=== PATIENT | female | born 1965 | race Two or more races ===

== ENCOUNTER 2025-04-16 08:15 | Emergency (ER) | payer MEDICAID, SELFPAY ==
--- NOTE | 2025-04-16 09:10 | EKG_ITS ---
[facility] Test Date: 2025-04-16 Pat Name: BETHEL FELIPE Department: Room: - Gender: Female Try Out Person: : 1965 Requested By: Giovanni Bunn (MAT) Order Number: [id number] Reading MD: Giovanni Bunn (INTERVENTION ANALYST) Measurements Intervals [place] Rate: 66 P: 14 LA: 170 QRS: 29 QRSD: 86 T: 48 QT: 401 QTc: 421 Interpretive Statements SINUS RHYTHM No previous ECG available for comparison /[id number]/[email or web address]/[id number].pdf
--- NOTE | 2025-04-16 09:10 | XR_ITS ---
Examination: Abdomen sonogram, Limited Date and time of exam: 04/16/2025, 9:25 a.m. INDICATION: Right upper quadrant pain radiating to back for 1 week. History of gallstones. COMPARISON: Gallbladder ultrasound 04/28/2005. Technique: Real-time haro scale transabdominal sonographic images of the upper abdomen obtained. FINDINGS: Gallbladder: Multiple small echogenic shadowing gallbladder calculi are present. No gallbladder wall thickening or pericholecystic fluid. No reported pain with direct transducer pressure over the gallbladder. The common bile duct measures 0.39 cm. No intrahepatic bile duct dilatation. The liver demonstrates nonspecific coarse echotexture. Hepatic margins are smooth. Small hepatic cysts are identified in the right hepatic lobe, the largest measuring 1.8 cm, the other measuring 1.3 cm. No apparent solid mass. Color Doppler demonstrates patency of the main portal vein with normal hepatopetal flow. The visualized IVC is patent. Limited views of the pancreas show no significant abnormality. There is no evidence for right renal calculi, hydronephrosis or mass. There appears to be hypertrophic column of [place] or potentially partially duplicated right renal collecting system. IMPRESSION: Cholelithiasis without evidence for acute cholecystitis, choledocholithiasis or biliary ductal obstruction. Diffusely increased hepatic echotexture is nonspecific and could be due to hepatic steatosis (most likely) amongst other possibilities. Simple-appearing sub-2 cm right hepatic lobe cysts.
--- NOTE | 2025-04-16 09:10 | PD.EDRME ---
Rapid Medical Screening Exam RME Arrival date/time: 04/16/25 08:15 60-year-old female presents to the emergency department today for complaints of upper abdominal pain and back pain Chief Complaint: Abdominal Pain Exam: On exam patient is tenderness of upper abdomen On exam patient well-appearing nontoxic Clinical Impression: Lab and imaging ordered
[2025-04-16 09:11] VITALS: BP 120/67; PULSE 70; RESP 16; TEMP 36.6; O2SAT 100; BMI 27.3
[2025-04-16 09:59] LABS: Collection Type, Urine Clean Catch
[2025-04-16 10:07] LABS: Bacteria,Urine Rare; Bilirubin,Urine Negative (Negative); Blood,Urine Negative (Negative); Clarity,Urine Clear (Clear/Hazy); Color,Urine Colorless (Lt Yel-Yel); Culture Indicated,Urine Not Indicated; Glucose, Urine Negative (Negative); Ketones,Urine Negative (Negative); Leukocyte Esterase,Urine Positive (Negative); Nitrite,Urine Negative (Negative); PH,Urine 7.0 (5.0-7.0); Protein,Urine Negative (Neg - Trace); RBC,Urine 3 /hpf (0-3); Specific Gravity,Urine 1.014 (1.001-1.035); Squamous Epithelial Cell,Urine 2 /hpf (0-5); Urobilinogen,Urine Negative mg/dL (0.0-1.0); WBC,Urine 7 /hpf (0-5)
[2025-04-16 10:27] LABS: Basophils # (Auto) 0.0 Thou/mm3 (0.0-0.2); Basophils % (Auto) 1 % (0-2.5); Eosinophils # (Auto) 0.1 Thou/mm3 (0.0-0.5); Eosinophils % (Auto) 1 % (0-10); Hematocrit 38.1 % (36.0-46.0); Hemoglobin 12.4 g/dL (12.0-16.0); Immature Granulocytes Auto 0.01 Thou/mm3 (0.00-0.00); Lymphocytes # (Auto) 2.4 Thou/mm3 (1.0-4.8); Lymphocytes % (Auto) 42 % (10-50); Mean Corpuscular HGB Conc 32.5 g/dl (31.0-37.0); Mean Corpuscular Hemoglobin 30.5 pg (25.0-35.0); Mean Corpuscular Volume 94 fL (80-100); Monocytes # (Auto) 0.5 Thou/mm3 (0.0-0.8); Monocytes % (Auto) 8 % (0-12); Neutrophils # (Auto) 2.7 Thou/mm3 (1.8-7.7); Neutrophils % (Auto) 48 % (37-80); Nucleated Red Blood Cell # 0.00 Thou/mm3 (0.00-0.00); Nucleated Red Blood Cell % 0 /100 WBC (0); Platelet Count 403 Thou/mm3 (140-440); RDW Standard Deviation 43.9 fL (36.4-46.3); Red Blood Count 4.07 Miln/mm3 (4.00-5.20); White Blood Count 5.7 Thou/mm3 (3.6-11.0)
[2025-04-16 10:50] LABS: Alanine Aminotransferase 8 U/L (10-49); Albumin, Serum 4.6 gm/dL (3.4-4.8); Albumin/Globulin Ratio 1.5 (1.2-2.2); Alkaline Phosphatase 84 U/L (46-116); Anion Gap 8 (7-16); Aspartate Amino Transferase 19 U/L (0-34); BUN/Creatinine Ratio 10 Ratio (12-20); Bilirubin,Total 0.3 mg/dL (0.3-1.2); Blood Urea Nitrogen 7 mg/dL (9-23); Calcium 9.2 mg/dL (8.3-10.6); Calcium (Corrected) 9.2 mg/dL (8.5-10.1); Carbon Dioxide 27.4 mMol/L (20.0-31.0); Chloride 107 mMol/L (98-107); Creatinine (Component) 0.7 mg/dL (0.6-1.3); Estimated Creatinine Clearance 80.1 mL/min (>60); Globulin 3.0 gm/dL (2.3-3.5); Glucose 87 mg/dL (74-106); Lipase 26 U/L (12-53); Osmolality,Calculated 280 (275-295); Potassium 4.3 mMol/L (3.4-5.1); Sodium 142 mMol/L (136-145); Total Protein 7.6 gm/dL (5.7-8.2); Troponin I < 0.002 ng/mL (0.0-0.045); eGFR > 60 See Note
[2025-04-16 11:46] VITALS: BP 139/78; PULSE 68; RESP 16; TEMP 36.7; O2SAT 98
--- NOTE | 2025-04-16 11:57 | EDNOTE_ITS ---
<Statement entered by Cristela Mari MD - 04/17/25 09:37> As co-signing physician, I was present and available for consult prn. I concur with the plan and care as documented by the midlevel provider. ED General RME/HPI General Chief complaint: Abdominal Pain Stated complaint: ABD PAIN X 1 WK RADIATING TO BACK Time Seen by Provider: 04/16/25 11:46 Arrival date/time: 04/16/25 08:15 CC: Epigastric pain HPI ongoing for months but worse in the last several days worse after meals or laying down at nighttime. Patient denies chest pain fever chills shortness of breath difficulty breathing headache nausea vomiting or diarrhea. The patient is originally put on omeprazole for the same complaints, but stopped taking it because it did not work . Patient intentionally did not show up to a GI appointment sometime in the past and the daughter is angry at her for the same complaint. Patient is currently nontoxic-appearing RME / HPI RME / HPI narrative: 04/16/25 08:15 60-year-old female presents to the emergency department today for complaints of upper abdominal pain and back pain Exam: On exam patient is tenderness of upper abdomen On exam patient well-appearing nontoxic Impression: Lab and imaging ordered Related Data Previous Rx's ?Medication ?Instructions ?Recorded pantoprazole 20 mg tablet,delayed 20 mg PO QDAY #30 ta bs 04/16/25 release (Protonix) Allergies Allergy/AdvReac Type Severity Reaction Status Date / Time No Known Allergies Allergy Verified 04/16/25 08:18 Review of Systems Review of Systems Narrative Review of Systems: GEN: No fever, no chills, no weight loss EYES: No discharge, no visual changes, no pain HEENT: No ear pain, no congestion, no sore throat PULM: No shortness of breath, no cough, no congestion CV: No chest pain, no dyspnea on exertion, no palpitations GI: No nausea, no vomiting, no diarrhea, + pain, no constipation : No frequency, no urgency, no dysuria MUSC/SKEL: No joint pain, no back pain SKIN: No rash PSYCH: No hallucinations, no depression HEME/LYMPH: No easy bleeding or bruising tendencies NEURO: No weakness, no headache Past Medical History Social History SMOKING STATUS: Never smoker ED Exam Narrative Physical exam: [General: Not in any acute distress Head normocephalic HEENT: Eyes pupils are PERRLA EOMs intact mouth pink moist membranes uvula is midline swallow symmetrical phonation is normal. Within acceptable limits Neck is supple nontender Chest equal chest rise nontender to palpation Respiratory: Clear to auscultation no wheezes crackles or rubs CV: Rate rhythm is regular no murmurs rubs or clicks Abdomen is soft and flat, there is pain with epigastric palpation no reflexive guarding no rebound tenderness no right or left upper quadrant pain and no lower abdominal pain. Back: No CVA tenderness no spinous process tenderness from cervical spine thoracic and lumbar spine Skin: Intact no petechiae rash induration ulceration or crepitus Extremities: Moving all extremity against resistance cap refill less than 2 seconds neurosensory intact Neuro: Awake alert oriented x3 Glascow coma 15 no focal deficits] Course Quality Measures none Orders Category Date Time Status EKG (ED ONLY) *Do not use* NOW Care 04/16/25 09:10 Completed EKG (ED Only) Stat Exams 04/16/25 09:10 Draft US gall bladder Stat Exams 04/16/25 09:10 Completed CBC Stat Lab 04/16/25 10:05 Completed Comprehensive Metabolic Panel Stat Lab 04/16/25 10:05 Completed Lipase Stat Lab 04/16/25 10:05 Completed Troponin I Stat Lab 04/16/25 10:05 Completed UA, C/S IF [Urinalysis, C/S if Indicated] Stat Lab 04/16/25 09:30 Completed Vital Signs Vital signs: Vital Signs Temperature 97.9 F 04/16/25 09:11 Pulse Rate 70 04/16/25 09:11 Respiratory Rate 16 04/16/25 09:11 Blood Pressure 120/67 04/16/25 09:11 Pulse Oximetry (%) 100 04/16/25 09:11 Oxygen Delivery Method Room Air 04/16/25 09:11 Discharge Plan Plan Patient Disposition: HOME (Self Care) Patient condition on transfer: Stable Prescriptions/Referrals Prescriptions/Med Rec: New pantoprazole [Protonix] 20 mg tablet,delayed release (DR/EC) 20 mg PO QDAY Qty: 30 0RF Referrals: Jerel Crisostomo MD [Physician, Gastroenterology] - In 1 week No Primary/Family,Physician [Primary Care Provider] - In 1 week Problem List Clinical Impression: Acid reflux Patient/Caregiver Discharge Instructions Other Activity Instructions:: Avoid greasy spicy and fatty foods, avoid eating 2 hours before going to bed take the medication as prescribed if there is worsening of symptoms in spite of these changes return to the emergency room for further evaluation otherwise follow-up with the GI specialist listed above. Education Materials: How Acid Reflux Affects Your Throat, ED GERD (Adult) Print Language: Qatari Stand Alone Forms: [facility]elle Award Info., Patient Portal Info Letter, Work/School Release PA/ORTHOTIC FITTER Supervising Physician PA/ORTHOTIC FITTER Supervising Physician: Abdoul Jaimes ENP MDM Clinical Information Provided by: patient and family Medical Records reviewed [facility] Meds/Rx considered, not ordered None Labs/Rad/Tests considered, not ordered None Chronic Illness/Social Conditions Explain: Acid reflux Labs Labs: interpreted by me Lab(s) Interpretation(s): CBC shows no acute leukocytosis anemia thrombocytopenia CMP shows no significant electrolyte imbalances renal impairment transaminitis or T. bili elevation Urine is negative for urinary tract infection Imaging Imaging interpretation: interpreted by me Imaging Interpretation(s): Gallbladder shows cholelithiasis without choledocholithiasis or cholecystitis. Medication Administration(s) none Diagnosis Differential Diagnosis ED Complaint MDM: Pancreatitis cholelithiasis choledocholithiasis cholecystitis
== END 2025-04-16 12:30 | disposition home or self-care (01) ==
PROVIDERS: Nurse Practitioner Primary Care; Emergency Provider Emergency Medicine
DX: K21.9 Gastro-esophageal reflux disease without esophagitis (principal)
CPT/HCPCS: 36415; 76705; 80053; 81001; 83690; 84484; 85025; 93005; 99283